=== PATIENT | male | born 1960 | race African-American/Black ===

== ENCOUNTER 2017-02-11 20:13 | Emergency (ER) | payer MEDICARE, OTHER ==
[2017-02-11 20:18] VITALS: BP 170/81
[2017-02-11] MEDS ORDERED: Tetan/Diph/Pertus SYR(Tdap)* 0.5 ML SYR(BOOSTRIX) use SYR IM ONE (20:58)
[2017-02-11] MEDS ORDERED: Ibuprofen TAB* 600 MG PO ONE (21:47)
[2017-02-11] MEDS ORDERED: Acetaminophen TAB* 325 MG PO ONE (21:47)
--- NOTE | 2017-02-11 21:51 | ED ---
Upper Extremity Pain - HPI Summary HPI Summary: Pt here w/ Lt thumb laceration while working with a new razor blade today. Accidental. Denies numbness, tingling, weakness however was concerned about depth of wound so came for evaluation. He is unsure of last tetanus vaccine. Also has DM - improving control w/ exercise and diet and finally on medication refile that works well for him. - History of Current Complaint Chief Complaint: EDLacSutureRecheck Stated Complaint: LT THUMB LAC Time Seen by Provider: 02/11/17 20:56 Hx Obtained From: Patient - Allergies/Home Medications Allergies/Adverse Reactions: Allergies Allergy/AdvReac Type Severity Reaction Status Date / Time No Known Allergies Allergy Verified 02/11/17 20:18 PMH/Surg Hx/FS Hx/Imm Hx Previously Healthy: Yes Endocrine/Hematology History: Reports: Hx Diabetes Denies: Hx Anticoagulant Therapy, Hx Blood Disorders, Hx Unexplained Bleeding Musculoskeletal History: Reports: Hx Arthritis - LEFT HIP, LOWER BACK, RIGHT HIP , RIGHT ANKLE, RIGHT WRIST, FINGERS, NECK, Other Musculoskeletal History - RIGHT SHOULDER ARTHRITIS Sensory History: Reports: Hx Contacts or Glasses - READING GLASSES Denies: Hx Hearing Aid Opthamlomology History: Reports: Hx Contacts or Glasses - READING GLASSES Psychiatric History: Reports: Hx Depression - ON MEDICATION FOR - Surgical History Surgery Procedure, Year, and Place: HIPS PINNED WHEN 12 AND 14. PINS REMOVED AGE 17 AND AGE 18 Hx Anesthesia Reactions: No Infectious Disease History: No Infectious Disease History: Denies: Traveled Outside the [place] in Last 30 Days - Family History Known Family History: Positive: None - Social History Occupation: Employed Full-time Lives: With Family Alcohol Use: None Hx Substance Use: Yes Substance Use Comment - Amount & Last Used: "CLEAN" SINCE 2000 Smoking Status (MU): Former Smoker Amount Used/How Often: 5 CIGARETTES PER DAY X 30 YEARS- NOW USES VAPOR Have You Smoked in the Last Year: No Review of Systems Negative: Fever, Chills Negative: Arthralgia, Myalgia, Decreased ROM, Edema Skin: Other - see HPI Neurological: Negative Negative: Weakness, Paresthesia, Numbness Psychological: Normal All Other Systems Reviewed And Are Negative: Yes Physical Exam Triage Information Reviewed: Yes Vital Signs On Initial Exam: Initial Vitals Temp Pulse Resp BP Pulse Ox 98.7 F 92 14 170/81 99 02/11/17 20:15 02/11/17 20:15 04/19/17 20:15 02/11/17 20:15 02/11/17 20:15 Vital Signs Reviewed: Yes Appearance: Positive: Well-Appearing, No Pain Distress, Well-Nourished Skin: Positive: Warm, Dry - j-shaped laceration over lateral aspect of Lt thumb - no bleeding, deep but well approximated - does not appear to be nerve or tendon damage Eyes: Positive: EOMI, Conjunctiva Clear ENT: Positive: Hearing grossly normal Respiratory/Lung Sounds: Positive: Breath Sounds Present Cardiovascular: Positive: Normal, Pulses are Symmetrical in both Upper and Lower Extremities Musculoskeletal: Positive: Normal, Strength/ROM Intact Neurological: Positive: Normal, Sensory/Motor Intact Psychiatric: Positive: Normal Procedures - Laceration/Wound Repair 1 Location: upper extremity - Lt thumb Description: Irregular - j-shaped Length, Depth and Shape: 1.5 cm in length x 3mm in depth (partial flap wound) Betadine Prep?: No Irrigated w/ Saline (ccs): 250 - hibaclens solution Laceration/Wound Explored: clean Closure: Skin Adhesive, SteriStrips Layer Closure?: No Sterile Dressing Applied?: Yes - covered w/ gauze dressing and splint Diagnostics - Vital Signs Vital Signs Temp Pulse Resp BP Pulse Ox 02/11/17 20:15 98.7 F 92 14 170/81 99 - Laboratory Lab Statement: Any lab studies that have been ordered have been reviewed, and results considered in the medical decision making process. Course/Dx - Course Course Of Treatment: Discussion w/ pt re: sutures vs. steristrips w/ dermabond. D/t location of wound to tendons, vessels and nerves and good natural approximation of skin w/o bleeding, pt prefered steristrips w/ dermabond and splint. He understands importance of keeping splint in place to reduce risk of wound dehiscence and healing to prevent secondary infection. Will have close f/ u w/ PCP to monitor wound healing. May consult w/ hand specialist as needed. Will also monitor glucose as a sign of possible infection in the face of pain, irritation, swelling, drainage, streaking and/or fever. - Diagnoses Provider Diagnoses: Laceration of thumb, left Discharge - Discharge Plan Condition: Stable Disposition: HOME Patient Education Materials: Laceration (ED), Skin Adhesive Care (ED), Steristrips (ED) Forms: *Work Release Referrals: Chari Garner [Primary Care Provider] - Additional Instructions: Rest, ice, elevate for pain, swelling. Keep your wound dry and clean. Keep external beige wrap in place for 48 hours before removing. Remove each day to allow for air to dry skin however you may reapply each day to help compress wound. Keep splint in place for 14 days to allow tissue to heal without movement. Follow-up with PCP Thursday for wound check. Do not remove steri strips prematurely - they will fall off on their own. If they fall off in the next few days, follow-up with your PCP for wound check and reapplication or return to ED. *If you develop redness, swelling, purulent drainage, streaking, fever, chills or abnormal elevation in blood glucose, follow-up with PCP or return to ED for possible infection
== END 2017-02-11 21:50 | disposition home or self-care (01) ==
LOC: ED 20:13
DX: S61.012A Laceration without foreign body of left thumb without damage to nail, initial encounter (principal); W26.0XXA Contact with knife, initial encounter; Y93.9 Activity, unspecified; Y92.9 Unspecified place or not applicable; Y99.9 Unspecified external cause status
CPT/HCPCS: 12001; 90471; 90715; 99282; A9270-GY